=== PATIENT | female | born 1960 | race Caucasian/White ===

== ENCOUNTER 2016-12-10 08:40 | Outpatient (CLI) | payer OTHER ==
[2016-12-10 09:39] LABS: Hemoglobin 13.7 g/dL (12.0-16.0); Mean Corpuscular HGB CONC 34.8 g/dL (32.0-36.0); Mean Corpuscular Hemoglobin 32.1 pg (27.0-31.0); Mean Corpuscular Volume 92.1 fl (81.0-99.0); Mean Platelet Volume 5.9 fL (7.4-10.4); Platelet Count 363 thou/uL (130-400); Red Blood Cell (RBC) Count 4.26 mill/uL (4.20-5.40); White Blood Cell (WBC) Count 8.4 thou/uL (4.8-10.8)
[2016-12-10 09:58] LABS: Amphetamine Not Detected (NotDetected); Barbiturates Screen Not Detected (NotDetected); Benzodiazepine Screen Not Detected (NotDetected); Cocaine Metabolite Screen Not Detected (NotDetected); Medtox Control Line Valid? VALID (VALID); Methadone Not Detected (NotDetected); Methamphetamine Not Detected (NotDetected); Opiate Screen Not Detected (NotDetected); Oxycodone Screen Not Detected (NotDetected); Phencyclidine (PCP) Not Detected (NotDetected); THC/Cannabinoid Screen Not Detected (NotDetected); Tricyclic Screen Not Detected (NotDetected)
[2016-12-10 10:01] LABS: ALT (SGPT) 9 U/L (0-55); AST (SGOT) 13 U/L (5-34); Albumin 4.1 g/dL (3.5-5.0); Alkaline Phosphatase 77 U/L (40-150); Anion Gap 15 mmol/L (10-20); BUN (Urea Nitrogen) 7 mg/dL (9.8-20.1); Bilirubin, Total 0.6 mg/dL (0.2-1.2); Calc. Creatinine Clearance 0 mL/min (70-130); Calcium 9.1 mg/dL (7.8-10.44); Carbon Dioxide 26 mmol/L (22-29); Cardiac Risk 3.6 (Less than 4.5); Chloride 97 mmol/L (98-107); Cholesterol 229 mg/dL (< 200 Desired); Estimated GFR-MDRD 88; Globulin 2.5 g/dL (2.4-3.5); Glucose 93 mg/dL (70-105); HDL Cholesterol 64 mg/dL (>60 Neg Risk); LDL Cholesterol, Calculated 149 mg/dL; Potassium 4.5 mmol/L (3.5-5.1); Protein, Total 6.6 g/dL (6.0-8.3); Sodium 133 mmol/L (136-145); Triglycerides 79 mg/dL (Less than 150)
[2016-12-10 17:02] LABS: Carbamazepine-Tegretol 5.7 ug/mL (4.0-12.0)
== END 2016-12-10 08:41 | disposition home or self-care (01) ==
LOC: MADLABBHPM 08:40
PROVIDERS: ATTEND Psychiatry & Neurology Psychiatry
DX: E78.5 Hyperlipidemia, unspecified (principal); F31.2 Bipolar disorder, current episode manic severe with psychotic features; Z79.899 Other long term (current) drug therapy
CPT/HCPCS: 36415; 80053; 80061; 80156; 80306; 84443; 85027

== ENCOUNTER 2017-05-05 09:53 | Outpatient (CLI) | payer OTHER ==
[2017-05-05 10:10] LABS: Hemoglobin 15.8 g/dL (12.0-16.0); Mean Corpuscular HGB CONC 34.9 g/dL (32.0-36.0); Mean Corpuscular Volume 91.8 fl (81.0-99.0); Mean Platelet Volume 5.9 fL (7.4-10.4); Platelet Count 367 thou/uL (130-400); RBC Distribution Width 12.1 % (11.5-14.5); Red Blood Cell (RBC) Count 4.93 mill/uL (4.20-5.40); White Blood Cell (WBC) Count 9.8 thou/uL (4.8-10.8)
[2017-05-05 10:44] LABS: ALT (SGPT) 11 U/L (8-55); AST (SGOT) 14 U/L (5-34); Albumin 3.9 g/dL (3.5-5.0); Alkaline Phosphatase 144 U/L (40-150); Anion Gap 19 mmol/L (10-20); BUN (Urea Nitrogen) 9 mg/dL (9.8-20.1); Bilirubin, Total Less than 0.3 mg/dL (0.2-1.2); Calc. Creatinine Clearance 0 mL/min (70-130); Carbon Dioxide 23 mmol/L (22-29); Cardiac Risk 5.8 (Less than 4.5); Chloride 93 mmol/L (98-107); Cholesterol 283 mg/dl (< 200 Desired); Estimated GFR-MDRD 89; Globulin 2.9 g/dL (2.4-3.5); Glucose 100 mg/dL (70-105); HDL Cholesterol 49 mg/dL (>60 Neg Risk); LDL Cholesterol, Calculated 212 mg/dL; Potassium 4.7 mmol/L (3.5-5.1); Protein, Total 6.8 g/dL (6.0-8.3); Sodium 130 mmol/L (136-145); Triglycerides 111 mg/dL (Less than 150)
[2017-05-05 10:47] LABS: Amphetamine Not Detected (NotDetected); Barbiturates Screen Not Detected (NotDetected); Benzodiazepine Screen Not Detected (NotDetected); Cocaine Metabolite Screen Not Detected (NotDetected); Medtox Control Line Valid? VALID (VALID); Methadone Not Detected (NotDetected); Methamphetamine Not Detected (NotDetected); Opiate Screen Not Detected (NotDetected); Oxycodone Screen Not Detected (NotDetected); Phencyclidine (PCP) Not Detected (NotDetected); THC/Cannabinoid Screen Not Detected (NotDetected); Tricyclic Screen Not Detected (NotDetected)
== END 2017-05-05 09:54 | disposition home or self-care (01) ==
LOC: MADLAB 09:53
PROVIDERS: ATTEND Psychiatry & Neurology Psychiatry
DX: F31.2 Bipolar disorder, current episode manic severe with psychotic features (principal); Z79.899 Other long term (current) drug therapy
CPT/HCPCS: 36415; 80053; 80061; 80156; 80306; 84443; 85027

== ENCOUNTER 2017-06-21 09:02 | Outpatient (CLI) | payer OTHER ==
[2017-06-21 09:35] LABS: #Basophils 0.1 thou/uL (0.0-0.2); #Eosinphils 0.2 thou/uL (0.0-0.7); #Lymphocytes 2.7 thou/uL (1.20-3.40); #Monocytes 0.6 thou/uL (0.11-0.59); #Neutrophils 4.4 thou/uL (1.40-6.50); %Basophils 1.5 % (0.0-1.0); %Eosinophils 2.2 % (0.0-10.0); %Lymphocytes 34.2 % (21.0-51.0); %Neutrophils 55.1 % (42.0-75.0); Mean Corpuscular HGB CONC 34.8 g/dL (32.0-36.0); Mean Corpuscular Hemoglobin 32.6 pg (27.0-31.0); Mean Corpuscular Volume 93.6 fl (81.0-99.0); Mean Platelet Volume 6.1 fL (7.4-10.4); Platelet Count 281 thou/uL (130-400); RBC Distribution Width 12.4 % (11.5-14.5); Red Blood Cell (RBC) Count 4.29 mill/uL (4.20-5.40); White Blood Cell (WBC) Count 7.9 thou/uL (4.8-10.8)
[2017-06-21 09:51] LABS: Hemoglobin A1c 4.7 % (4.0-6.0)
[2017-06-21 10:56] LABS: ALT (SGPT) 11 U/L (8-55); AST (SGOT) 12 U/L (5-34); Albumin 3.6 g/dL (3.5-5.0); Alkaline Phosphatase 128 U/L (40-150); Anion Gap 11 mmol/L (10-20); BUN (Urea Nitrogen) 8 mg/dL (9.8-20.1); Bilirubin, Total Less than 0.3 mg/dL (0.2-1.2); Calc. Creatinine Clearance 0 mL/min (70-130); Calcium 8.6 mg/dL (7.8-10.44); Carbon Dioxide 27 mmol/L (22-29); Cardiac Risk 4.9 (Less than 4.5); Chloride 100 mmol/L (98-107); Cholesterol 255 mg/dl (< 200 Desired); Estimated GFR-MDRD Greater than 90; Globulin 2.6 g/dL (2.4-3.5); Glucose 93 mg/dL (70-105); HDL Cholesterol 52 mg/dL (>60 Neg Risk); LDL Cholesterol, Calculated 186 mg/dL; Potassium 4.4 mmol/L (3.5-5.1); Protein, Total 6.2 g/dL (6.0-8.3); Sodium 134 mmol/L (136-145); Triglycerides 83 mg/dL (Less than 150)
[2017-06-21 12:59] LABS: Amphetamine Not Detected (NotDetected); Benzodiazepine Screen Not Detected (NotDetected); Cocaine Metabolite Screen Not Detected (NotDetected); Methamphetamine Not Detected (NotDetected); Opiate Screen Not Detected (NotDetected); Phencyclidine (PCP) Not Detected (NotDetected); THC/Cannabinoid Screen Not Detected (NotDetected); Tricyclic Screen Not Detected (NotDetected)
[2017-06-21 13:00] LABS: Barbiturates Screen Not Detected (NotDetected); Medtox Control Line Valid? VALID (VALID); Methadone Not Detected (NotDetected); Oxycodone Screen Not Detected (NotDetected)
== END 2017-06-21 09:03 | disposition home or self-care (01) ==
LOC: MADLABBHPM 09:02
PROVIDERS: ATTEND Psychiatry & Neurology Psychiatry
DX: E78.5 Hyperlipidemia, unspecified (principal); F31.9 Bipolar disorder, unspecified; Z79.899 Other long term (current) drug therapy
CPT/HCPCS: 36415; 80053; 80061; 80306; 83036; 84443; 85025

== ENCOUNTER 2017-08-08 12:40 | Outpatient (CLI) | payer OTHER ==
--- NOTE | 2017-08-08 13:37 | CT ---
HEAD CT WITHOUT CONTRAST: 08/08/2017 HISTORY: Chronic daily headaches for one year. COMPARISON: None. TECHNIQUE: Serial axial CT imaging at 5 mm intervals from the vertex through the skull base without contrast. FINDINGS: The imaged paranasal sinuses/mastoid air cells are well aerated. No displaced calvarial fracture. No intracranial hemorrhage, midline shift, mass effect, or ventricular enlargement. IMPRESSION: No intracranial hemorrhage. POS: DRAKE
== END 2017-08-08 12:41 | disposition home or self-care (01) ==
LOC: MADCT 12:40
PROVIDERS: ATTEND Family Medicine
DX: R51 Headache (principal)
CPT/HCPCS: 70450

== ENCOUNTER 2017-11-24 11:49 | Outpatient (CLI) | payer OTHER ==
--- NOTE | 2017-11-24 12:23 | RAD ---
RIGHT WRIST TWO VIEW: History: Pain. Comparison: None. FINDINGS: No displaced fracture or malalignment. Soft tissues are unremarkable. Scapholunate interval is normal . IMPRESSION: No acute abnormality. POS: OFF
--- NOTE | 2017-11-24 13:07 | RAD ---
RIGHT HAND 3 VIEWS: HISTORY: Pain for 2 weeks without trauma. COMPARISON: None. FINDINGS: No displaced fracture or malalignment. There is mild edema of the 2nd, 3rd, and 4th finger soft tiss ues. IMPRESSION: No displaced fracture or malalignment. POS: OFF
== END 2017-11-24 11:50 | disposition home or self-care (01) ==
LOC: MADRAD 11:49
PROVIDERS: ATTEND Family Medicine
DX: M25.531 Pain in right wrist (principal); M25.449 Effusion, unspecified hand

== ENCOUNTER 2018-01-20 16:11 | Emergency (ER) | payer OTHER ==
[2018-01-20] MEDS ORDERED: Ondansetron ODT 4 MG TAB ONE (16:51)
[2018-01-20] MEDS ORDERED: Cyclobenzaprine 10 MG TAB ONE (16:51)
[2018-01-20] MEDS ORDERED: Ketorolac Tromethamine 30 MG/ML VIAL ONE (16:51)
== END 2018-01-20 17:05 | disposition home or self-care (01) ==
LOC: MADERS 16:11
DX: M25.512 Pain in left shoulder (principal); G43.909 Migraine, unspecified, not intractable, without status migrainosus; Z79.899 Other long term (current) drug therapy
CPT/HCPCS: 96372; J1885; Q0162

== ENCOUNTER 2018-04-14 00:33 | Emergency (ER) | payer OTHER ==
[2018-04-14] MEDS ORDERED: HYDROcodone/Acetaminophen 10/325 mg Tablet ONE (01:32)
--- NOTE | 2018-04-14 08:03 | RAD ---
RIGHT SHOULDER 3 VIEWS: Date: 04/14/18 HISTORY: 58-year-old female with history of right shoulder pain following a lifting injury. FINDINGS: AC joint arthrosis changes. No evidence for acute fracture or dislocation. IMPRESSION: Degenerative changes without acute fracture. POS: DRAKE
== END 2018-04-14 01:47 | disposition home or self-care (01) ==
LOC: MADERS 00:33
DX: S46.911A Strain of unspecified muscle, fascia and tendon at shoulder and upper arm level, right arm, initial encounter (principal); E78.5 Hyperlipidemia, unspecified; F31.9 Bipolar disorder, unspecified; F17.210 Nicotine dependence, cigarettes, uncomplicated; Z79.899 Other long term (current) drug therapy; X50.0XXA Overexertion from strenuous movement or load, initial encounter

== ENCOUNTER 2019-02-25 08:26 | Emergency (ER) | payer OTHER ==
[2019-02-25] MEDS ORDERED: predniSONE 20 MG TAB ONE (08:56)
[2019-02-25] MEDS ORDERED: Acetaminophen 500 MG TAB ONE (11:05)
[2019-02-25] MEDS ORDERED: Albuterol Sulfate 2.5 mg/0.5 ml Neb ONE (11:05)
== END 2019-02-25 13:00 | disposition home or self-care (01) ==
LOC: MADERS 08:26
DX: J45.901 Unspecified asthma with (acute) exacerbation (principal); E78.5 Hyperlipidemia, unspecified; I10 Essential (primary) hypertension; J45.909 Unspecified asthma, uncomplicated; M06.9 Rheumatoid arthritis, unspecified; F31.9 Bipolar disorder, unspecified; F17.210 Nicotine dependence, cigarettes, uncomplicated; Z71.6 Tobacco abuse counseling; Z79.899 Other long term (current) drug therapy; Z79.82 Long term (current) use of aspirin
CPT/HCPCS: 94640; 94760; 99406; J7512; J7611; J7620

== ENCOUNTER 2020-02-29 11:13 | Outpatient (CLI) | payer OTHER ==
--- NOTE | 2020-02-29 11:42 | RAD ---
EXAM: XR Lumbar Spine Min 4 View PROVIDED CLINICAL HISTORY: Low back pain for 2 weeks COMPARISON: 08/08/2013 FINDINGS: There are 5 nonrib-bearing lumbar-type vertebral bodies. Scattered osteophytes are seen anteriorly in the lumbar spine. Mild narrowing of the L5-S1 intervertebral disc space is present. The vertebral body heights are within normal limits. No fracture or subluxation is appreciated. Vascular calcifications are again seen in the abdominal aorta and involving the iliac arteries. IMPRESSION: Scattered degenerative changes within the lumbar spine which appear mildly progressed at the lumbosac ral junction. No fracture or subluxation is seen.
== END 2020-02-29 11:14 | disposition home or self-care (01) ==
LOC: MADRAD 11:13
PROVIDERS: ATTEND Nurse Practitioner Family
DX: M54.17 Radiculopathy, lumbosacral region (principal); M54.18 Radiculopathy, sacral and sacrococcygeal region; M54.5 Low back pain; M47.816 Spondylosis without myelopathy or radiculopathy, lumbar region
CPT/HCPCS: 72110